=== PATIENT | male | born 1950 | race Hispanic/Latino ===

== ENCOUNTER → 2022-11-02 | Outpatient (CLI) | payer OTHER | END | disposition home or self-care (01) | LOC: SHCH 14:46 | PROVIDERS: ATTEND Internal Medicine Cardiovascular Disease | DX: I87.2 Venous insufficiency (chronic) (peripheral) (principal) | CPT/HCPCS: 93970 ==

== ENCOUNTER 2023-03-22 10:59 | Emergency (ER) | payer OTHER ==
[~2023-03-22] VITALS: Ht 165.1 cm; Wt 72.6 kg
[2023-03-22] MEDS ORDERED: AMOX1TAB16 PO (11:45)
[2023-03-22] MEDS ORDERED: CIPR7.5D OT (11:45)
[2023-03-22] MEDS ORDERED: IBUP-2070 PO (11:45)
[2023-03-22] MEDS ORDERED: KETOROLAC 60 MG VIAL (30MG/ML) IM ONE (12:00)
[2023-03-22 12:46] VITALS: BP 123/84
== END 2023-03-22 12:47 | disposition home or self-care (01) ==
LOC: EDH 10:59
DX: H60.93 Unspecified otitis externa, bilateral (principal); E78.00 Pure hypercholesterolemia, unspecified; F17.200 Nicotine dependence, unspecified, uncomplicated; I10 Essential (primary) hypertension
CPT/HCPCS: 99283; 96372; J1885

== ENCOUNTER → 2023-07-27 | Outpatient (CLI) | payer OTHER ==
[~2023-07-27] MED LIST: AMOX1TAB16 PO; CIPR7.5D OT; IBUP-2070 PO; REGADENOSON 0.4 MG/5 ML PF SYG IVP ONE
== END | disposition home or self-care (01) ==
LOC: SHCH 08:48
PROVIDERS: ATTEND Internal Medicine Cardiovascular Disease
DX: I20.0 Unstable angina (principal); I25.9 Chronic ischemic heart disease, unspecified
CPT/HCPCS: 78452; 96374; 93017; J2785; A9500 ×2

== ENCOUNTER → 2023-08-23 | Outpatient (CLI) | payer OTHER ==
[~2023-08-23] MED LIST changes: -REGADENOSON 0.4 MG/5 ML PF SYG IVP ONE
== END | disposition home or self-care (01) ==
LOC: SHCH 13:06
PROVIDERS: ATTEND Internal Medicine Cardiovascular Disease
DX: I20.0 Unstable angina (principal); I10 Essential (primary) hypertension; E78.5 Hyperlipidemia, unspecified
CPT/HCPCS: 93306

== ENCOUNTER → 2024-09-11 | Outpatient (CLI) | payer OTHER ==
[~2024-09-11] MED LIST changes: +AEC81 PO; -AMOX1TAB16 PO; +ATOR40TA71 PO; -CIPR7.5D OT; +FURO20TA6 PO; -IBUP-2070 PO; +METO25 PO
== END | disposition home or self-care (01) ==
LOC: SHCH 13:04
PROVIDERS: ATTEND Internal Medicine Cardiovascular Disease
DX: I87.2 Venous insufficiency (chronic) (peripheral) (principal); I87.1 Compression of vein
CPT/HCPCS: 93925; 93970